=== PATIENT | male | born 2005 | race Caucasian/White ===

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

== ENCOUNTER 2024-10-26 11:08 | Emergency (ER) | payer OTHER ==
[~2024-10-26] VITALS: Ht 188 cm; Wt 104.7 kg
[2024-10-26 11:50] VITALS: BP 136/66; TEMP 98.3; O2SAT 99
== END 2024-10-26 12:02 | disposition home or self-care (01) ==
LOC: M ED 11:08
DX: B08.4 Enteroviral vesicular stomatitis with exanthem (principal)